=== PATIENT | female | born 1990 | race Caucasian/White ===

== ENCOUNTER 2016-11-26 10:48 | Emergency (ER) | payer MEDICAID ==
[~2016-11-26] VITALS: Ht 160 cm; Wt 56.7 kg
[~2016-11-26 10:48] MED LIST: AMOXICILLIN875 MG PO; AMOXICOT500 MG PO; ATIVAN1 MG PO; CARBATROL300 MG OR; CLONAZEPAM1 M1 OR; CYCLOBENZAPRINE10 MG PO; EFFEXOR XR 75MG75 MG PO; EFFEXOR XR37.5 MG PO; ETODOLAC400 MG PO; FERROUS SULFAT325 M2 PO; FLEXERIL10 MG PO; FOLIC ACID 1MG T1 MG PO; HUMALOG100 U/M1 SC; HUMALOG100 U/ML SC; HUMULIN 70100 UNITS/ SC; HUMULIN N100 UNITS/ SC; HUMULIN R100 UNITS/ SC; IMPLANON68 MG; INSULIN GL100 UNITS/ SC; INSULIN RE100 UNITS/ SC; KEFLEX500 M1 PO; KEPPRA 500 MG500 MG PO; KEPPRA1000 MG OR; KEPPRA1000 MG PO; LANTUS INS100 UNITS/ SC; LEVAQUIN750 MG PO; LEVEMIR FLEX100 U/ML SC; LORTAB 5/500 501 TAB PO; METFORMIN1000 MG PO; NICODERM C21 MG/24 H TD; NOVOLOG MIX 70/10 ML SC; Novolog100 U/ML SC; OXCARBAZEPINE300 M1 PO; PAROXETINE HCL20 MG PO; PHENERGAN 25MG.25 M1 PO; PRENATAL PLUS1 TA1 PO; RELION NOVOL100 U/M1 SQ; RELION NOVOL100 U/ML SC; SERTRALINE 50MG50 MG PO; TRILEPTAL600 MG PO; VALIUM 5MG TABLE5 MG PO; VIMPAT200 MG PO; ZOFRAN 8MG TABLE8 MG PO; ZOFRAN ODT4 MG PO
[2016-11-26 11:33] LABS: URINE BILIRUBIN - DIPSTICK NEGATIVE (NEG); URINE BLOOD NEGATIVE (NEG)
--- NOTE | 2016-11-26 12:27 | Emergency Room Report ---
History of Present Illness Time Seen by 1152 Presenting Problem in Triage Pt arrived:Walked Presenting Problem:REPORTS LOW BACK PAIN. REPORTS TAKING TORADOL, WHICH DIDNT HELP. 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 N Clinical Suspician of Infection? N Mental Status: 1 - Regular (Normal Baseline) Sepsis Risk:Low Sepsis Risk Have you (or family members/close friends) recently traveled outside the [place]? N If Yes, where/when: Have you had exposure to infectious disease within the past month? N TB? Other? Specify: Comment The patient claims of low back pain radiating down her RIGHT leg for about 1-1-1 /2 weeks. She says that she injured her back back in September and came in here by [employer]. She says she did not have x-rays done. It got better afterwards. She says she was put on etodolic and Flexeril. She has been trying those as well as ibuprofen, naproxen, and Toradol and says none of it is helping. She is a diabetic. She has poorly controlled blood sugar. She says her blood sugar was 500 this morning, which is typical for her. She denies urinary symptoms, numbness or weakness. Pain increases with movement particularly bending forward and twisting side to side. ALLERGIES Coded Allergies: buspirone (10/27/16) nitrofurantoin (10/27/16) sulfamethoxazole (From BACTRIM) (10/27/16) topiramate (From TOPAMAX) (10/27/16) trimethoprim (From BACTRIM) (10/27/16) Uncoded Allergies: PLASTIC TAPE (02/18/16) Home Medications Active Scripts Ondansetron (Zofran 4MG Odt) 4 MG PO Q6HP PRN NAUSEA AND VOMITING #10 ODT Prov: 11/06/16 Cyclobenzaprine Hcl (Flexeril) 5 MG PO TIDP PRN pain #30 TAB Prov: 09/07/16 Oxcarbazepine (Trileptal) 900 MG PO BID 30 Days Ref 2 Prov: 08/23/16 Levetiracetam (Keppra 500 Mg Tablet) 2,500 MG PO BID 30 Days Ref 2 Prov: 08/23/16 Lacosamide (Vimpat) 200 MG PO TID 30 Days Ref 2 Prov: 08/23/16 Reported Medications INSULIN REGULAR, HUMAN (Humulin R INSULIN 10ML Vial) 8 UNITS SC AC #10 INSULIN NPH HUMAN ISOPHANE (Humulin N INSULIN 10ML Vial) 25 UNITS SC BID #10 History Medical History General CAD? No Angina: No [place]: No Hypertension? No Hyperlipidemia? No CHF? No DVT? No PE? No COPD? No Asthma? No Anemia? No GERD? No Gastric ulcers? No GI Bleed? No Hernia? No Thyroid Problems? No Hypothyroidism? No CVA? Yes Seizures? Yes Diabetes? Yes Insulin Dependent: Yes Insulin Pump: No Home FSBS? Yes Renal Insuffiency? No End Stage Renal Disease? No UTI? Yes Stones? Yes BPH? No GB Disease: Yes Nephritic Syndrome? No Asplenia? No Hepatitis? No Sickle Cell Disease? No Arthritis? No Migraines? Yes Cataracts? No Glaucoma? No MRSA? No HIV? No TB? No Anxiety? Yes Depression? Yes Cancer? No More? 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 This was on September 07. She did have a lumbar spine x-ray which was negative. I do not feel this needs to be repeated. There has been no new trauma. I suspect that she has a herniated disc and is advised follow-up with her PCP. I will not start steroids given her poorly controlled diabetes. Review of Systems All Other Systems Reviewed and Negative Constitutional denies fever Gastrointestinal denies vomiting Genitourinary denies: dysuria, frequency, hesitancy, hematuria. Musculoskeletal back pain Psychiatric/Neurological denies numbness, denies weakness Physical Exam Vital Signs Vital Signs Date Time Temp Pulse Resp B/P Pulse O2 O2 Flow FiO2 Ox Delivery Rate 11/26 1236 82 16 124/82 99 11/26 1140 88 16 120/81 99 11/26 1138 98.1 99 16 116/79 99 General Appearance normal appearance, WD/WN Eye Exam - bilateral eye normal exam, bilateral eye PERRL, bilateral eye EOMI Ear, Nose, Throat hearing grossly normal, normal ENT inspection Neck normal inspection, non-tender, supple, full range of motion Respiratory Status Yes: trachea midline, chest symmetrical, non tender chest. No: respiratory distress. Lung Sounds bilateral: normal breath sounds, lungs clear. Cardiovascular normal exam, regular rate/rhythm, no peripheral edema, no gallop, no JVD, no murmur, no rub, normal peripheral pulses Peripheral Pulses Pulses normal Yes Gastrointestinal normal bowel sounds, normal exam, non tender, soft, no organomegaly Back normal inspection, no CVA tenderness, no vertebral tenderness Extremities non-tender, normal range of motion, normal inspection Neurologic alert, normal exam, no motor/sensory deficits, oriented x 3 Reflexes Comment 1+ knee jerk and ankle jerk bilaterally symmetric Mental status normal mood/affect Skin intact, normal color, warm/dry Medical Decision Making LABS/Meds/Orders Pt receiving controlled substance in ED? Yes [facility] was queried for this patient? Yes Reference #: [id number] Comment 17 rxs. last rx 10 norco on 11/02/16. 2 rxs for norco in october, tabs on 10/27/16. Results/Orders Laboratory Tests 11/26/16 1120: Urine Color YELLOW, Urine Appearance CLEAR, Urine pH 6.0, Ur Specific [place] 1.010, Urine Protein NEGATIVE, Urine Ketones TRACE H, Urine Blood NEGATIVE, Urine Nitrate NEGATIVE, Urine Bilirubin NEGATIVE, Urine Urobilinogen 0.2, Ur Leukocyte Esterase NEGATIVE, Urine WBC OCC, Ur Squamous Epith Cells 3-5, Urine Bacteria TRACE, Urine Glucose 3+ H Current Medication Orders Sig/Mare Start time Last Medication Dose Route Stop Time Status Admin Hydromorphone HCl 2 MG ONCE ONE 11/26 1245 AC IM 11/26 1246 Ondansetron HCl 4 MG ONCE ONE 11/26 1245 AC IM 11/26 1246 Orders Procedure Date/time Status URINALYSIS/COMPLETE 11/26 1125 Complete URINE 11/26 1125 Complete Departure Departure Disposition DC Home or Self Care(routine) Clinical Impression Primary Impression: Low back pain with sciatica Qualifiers: Chronicity: acute Back pain laterality: midline Sciatica laterality : sciatica of right side Qualified Code: M54.41 - Lumbago with sciatica, right side Condition STABLE Referrals Alvaro PRINCE,Lucius Babcock (PCP) Patient Instructions DI for Back Pain With Sciatica, DI for Lumbar Radiculopathy Additional Instructions Continue only one of the following: etodolic, ibuprofen, naproxen or toradol You may continue Flexeril Additional instructions for BACK PAIN: See your physician as soon as possible for further evaluation. Return immediately if back pain becomes intolerable, or if fever, numbness or weakness of your legs, loss of control of your bowels or bladder. Prescriptions Current Visit Scripts HYDROCODONE/ACETAMINOPHEN ([place] 5-325 Tablet) 1 TAB PO Q6HP PRN pain #20 TAB ED Critical Care Critical Care No at 1247
--- NOTE | 2016-11-26 12:27 | Emergency Room Report ---
History of Present Illness Time Seen by 1152 Presenting Problem in Triage Pt arrived:Walked Presenting Problem:REPORTS LOW BACK PAIN. REPORTS TAKING TORADOL, WHICH DIDNT HELP. 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 N Clinical Suspician of Infection? N Mental Status: 1 - Regular (Normal Baseline) Sepsis Risk:Low Sepsis Risk Have you (or family members/close friends) recently traveled outside the [place]? N If Yes, where/when: Have you had exposure to infectious disease within the past month? N TB? Other? Specify: Comment The patient claims of low back pain radiating down her RIGHT leg for about 1-1-1 /2 weeks. She says that she injured her back back in September and came in here by [employer]. She says she did not have x-rays done. It got better afterwards. She says she was put on etodolic and Flexeril. She has been trying those as well as ibuprofen, naproxen, and Toradol and says none of it is helping. She is a diabetic. She has poorly controlled blood sugar. She says her blood sugar was 500 this morning, which is typical for her. She denies urinary symptoms, numbness or weakness. Pain increases with movement particularly bending forward and twisting side to side. ALLERGIES Coded Allergies: buspirone (10/27/16) nitrofurantoin (10/27/16) sulfamethoxazole (From BACTRIM) (10/27/16) topiramate (From TOPAMAX) (10/27/16) trimethoprim (From BACTRIM) (10/27/16) Uncoded Allergies: PLASTIC TAPE (02/18/16) Home Medications Active Scripts Ondansetron (Zofran 4MG Odt) 4 MG PO Q6HP PRN NAUSEA AND VOMITING #10 ODT Prov: 11/06/16 Cyclobenzaprine Hcl (Flexeril) 5 MG PO TIDP PRN pain #30 TAB Prov: 09/07/16 Oxcarbazepine (Trileptal) 900 MG PO BID 30 Days Ref 2 Prov: 08/23/16 Levetiracetam (Keppra 500 Mg Tablet) 2,500 MG PO BID 30 Days Ref 2 Prov: 08/23/16 Lacosamide (Vimpat) 200 MG PO TID 30 Days Ref 2 Prov: 08/23/16 Reported Medications INSULIN REGULAR, HUMAN (Humulin R INSULIN 10ML Vial) 8 UNITS SC AC #10 INSULIN NPH HUMAN ISOPHANE (Humulin N INSULIN 10ML Vial) 25 UNITS SC BID #10 History Medical History General CAD? No Angina: No PR: No Hypertension? No Hyperlipidemia? No CHF? No DVT? No PE? No COPD? No Asthma? No Anemia? No GERD? No Gastric ulcers? No GI Bleed? No Hernia? No Thyroid Problems? No Hypothyroidism? No CVA? Yes Seizures? Yes Diabetes? Yes Insulin Dependent: Yes Insulin Pump: No Home FSBS? Yes Renal Insuffiency? No End Stage Renal Disease? No UTI? Yes Stones? Yes BPH? No GB Disease: Yes Nephritic Syndrome? No Asplenia? No Hepatitis? No Sickle Cell Disease? No Arthritis? No Migraines? Yes Cataracts? No Glaucoma? No MRSA? No HIV? No TB? No Anxiety? Yes Depression? Yes Cancer? No More? 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 This was on September 07. She did have a lumbar spine x-ray which was negative. I do not feel this needs to be repeated. There has been no new trauma. I suspect that she has a herniated disc and is advised follow-up with her PCP. I will not start steroids given her poorly controlled diabetes. Review of Systems All Other Systems Reviewed and Negative Constitutional denies fever Gastrointestinal denies vomiting Genitourinary denies: dysuria, frequency, hesitancy, hematuria. Musculoskeletal back pain Psychiatric/Neurological denies numbness, denies weakness Physical Exam Vital Signs Vital Signs Date Time Temp Pulse Resp B/P Pulse O2 O2 Flow FiO2 Ox Delivery Rate 11/26 1236 82 16 124/82 99 11/26 1140 88 16 120/81 99 11/26 1138 98.1 99 16 116/79 99 General Appearance normal appearance, WD/WN Eye Exam - bilateral eye normal exam, bilateral eye PERRL, bilateral eye EOMI Ear, Nose, Throat hearing grossly normal, normal ENT inspection Neck normal inspection, non-tender, supple, full range of motion Respiratory Status Yes: trachea midline, chest symmetrical, non tender chest. No: respiratory distress. Lung Sounds bilateral: normal breath sounds, lungs clear. Cardiovascular normal exam, regular rate/rhythm, no peripheral edema, no gallop, no JVD, no murmur, no rub, normal peripheral pulses Peripheral Pulses Pulses normal Yes Gastrointestinal normal bowel sounds, normal exam, non tender, soft, no organomegaly Back normal inspection, no CVA tenderness, no vertebral tenderness Extremities non-tender, normal range of motion, normal inspection Neurologic alert, normal exam, no motor/sensory deficits, oriented x 3 Reflexes Comment 1+ knee jerk and ankle jerk bilaterally symmetric Mental status normal mood/affect Skin intact, normal color, warm/dry Medical Decision Making LABS/Meds/Orders Pt receiving controlled substance in ED? Yes [facility] was queried for this patient? Yes Reference #: [id number] Comment 17 rxs. last rx 10 norco on 11/02/16. 2 rxs for norco in october, tabs on 10/27/16. Results/Orders Laboratory Tests 11/26/16 1120: Urine Color YELLOW, Urine Appearance CLEAR, Urine pH 6.0, Ur Specific [place] 1.010, Urine Protein NEGATIVE, Urine Ketones TRACE H, Urine Blood NEGATIVE, Urine Nitrate NEGATIVE, Urine Bilirubin NEGATIVE, Urine Urobilinogen 0.2, Ur Leukocyte Esterase NEGATIVE, Urine WBC OCC, Ur Squamous Epith Cells 3-5, Urine Bacteria TRACE, Urine Glucose 3+ H Current Medication Orders Sig/Mare Start time Last Medication Dose Route Stop Time Status Admin Hydromorphone HCl 2 MG ONCE ONE 11/26 1245 AC IM 11/26 1246 Ondansetron HCl 4 MG ONCE ONE 11/26 1245 AC IM 11/26 1246 Orders Procedure Date/time Status URINALYSIS/COMPLETE 11/26 1125 Complete URINE 11/26 1125 Complete Departure Departure Disposition DC Home or Self Care(routine) Clinical Impression Primary Impression: Low back pain with sciatica Qualifiers: Chronicity: acute Back pain laterality: midline Sciatica laterality : sciatica of right side Qualified Code: M54.41 - Lumbago with sciatica, right side Condition STABLE Referrals Alvaro PRINCE,Lucius Babcock (PCP) Patient Instructions DI for Back Pain With Sciatica, DI for Lumbar Radiculopathy Additional Instructions Continue only one of the following: etodolic, ibuprofen, naproxen or toradol You may continue Flexeril Additional instructions for BACK PAIN: See your physician as soon as possible for further evaluation. Return immediately if back pain becomes intolerable, or if fever, numbness or weakness of your legs, loss of control of your bowels or bladder. Prescriptions Current Visit Scripts HYDROCODONE/ACETAMINOPHEN ([place] 5-325 Tablet) 1 TAB PO Q6HP PRN pain #20 TAB ED Critical Care Critical Care No at 1242
[2016-11-26] MEDS ORDERED: NORCO 325 MG-51 TAB PO (12:43)
[2016-11-26 12:55] VITALS: BP 124/82
[2016-12-01] MEDS ORDERED: MOTRIN 600MG.600 MG PO (23:29)
[2016-12-21] MEDS ORDERED: OXCARBAZEPINE300 M2 PO (11:58)
[2016-12-21] MEDS ORDERED: NAPROXEN500 M1 PO (11:58)
[2016-12-21] MEDS ORDERED: ZOFRAN ODT4 MG PO (13:08)
[2016-12-21] MEDS ORDERED: CIPRO 500MG TA500 MG PO (13:10)
[2017-02-03] MEDS ORDERED: KEFLEX500 M1 PO (14:23)
[2017-02-23] MEDS ORDERED: AMOXICOT500 MG PO (14:58)
== END 2016-11-26 13:00 | disposition home or self-care (01) ==
LOC: ER 10:48
PROVIDERS: Emergency Medicine
DX: M54.41 Lumbago with sciatica, right side (principal); F41.8 Other specified anxiety disorders; E11.65 Type 2 diabetes mellitus with hyperglycemia; Z79.4 Long term (current) use of insulin
CPT/HCPCS: J2405

== ENCOUNTER 2016-12-23 19:40 | Inpatient (IN) | payer MEDICAID ==
[~2016-12-23] VITALS: Ht 160 cm; Wt 76.4 kg
[~2016-12-23 19:40] MED LIST changes: +CIPRO 500MG TA500 MG PO; +MOTRIN 600MG.600 MG PO; +NAPROXEN500 M1 PO; +NORCO 325 MG-51 TAB PO; +OXCARBAZEPINE300 M2 PO
[2016-12-23 19:42] VITALS: BP 164/86
[2016-12-23 20:06] LABS: URINE BLOOD 1+ (NEG)
[2016-12-23 20:22] LABS: URINE BILIRUBIN - DIPSTICK NEGATIVE (NEG)
[2016-12-23 20:24] LABS: LYMPH # 1.3 K/mm3 (0.7-4.5); LYMPH % 8.5 % (10-50.0)
[2016-12-23 20:27] LABS: HEMOGLOBIN 16.6 g/dL (12.2-16.2)
[2016-12-23 20:29] LABS: ALLEN'S TEST Y; ARTERIAL ABE -22.1 MMOL/L (-2.4-+2.3); ARTERIAL PO2 108.4 MMHG (80-100); ARTERIAL TCO2 7.3 MMOL/L (23-27); OXYGEN R/A
[2016-12-23 20:38] LABS: NEUTROPHILS 84 % (42-76)
--- NOTE | 2016-12-23 20:46 | Emergency Room Report ---
History of Present Illness Time Seen by 2030 Presenting Problem in Triage Pt arrived:Walked Presenting Problem:VOMITING ALL DAY, SEEN IN ER 2 DAYS AGO. 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 N Clinical Suspician of Infection? N Mental Status: 1 - Regular (Normal Baseline) Sepsis Risk:Low Sepsis Risk Have you (or family members/close friends) recently traveled outside the [place]? N If Yes, where/when: Have you had exposure to infectious disease within the past month? N TB? Other? Specify: Source patient, RN notes reviewed, family, old records Exam Limitations no limitations Comment known iddm with vomiting and reported compliance with meds Cardiac Chest Pain Chest pain indicative of cardiac No Timing/Duration this evening Severity moderate ALLERGIES Coded Allergies: buspirone (12/01/16) nitrofurantoin (12/01/16) sulfamethoxazole (From BACTRIM) (12/01/16) topiramate (From TOPAMAX) (12/01/16) trimethoprim (From BACTRIM) (12/01/16) Uncoded Allergies: PLASTIC TAPE (02/18/16) Home Medications Active Scripts Ondansetron (Zofran 4MG Odt) 4 MG PO Q6HP PRN NAUSEA AND VOMITING #6 ODT Prov: 12/21/16 Cyclobenzaprine Hcl (Flexeril) 5 MG PO TIDP PRN pain #30 TAB Prov: 09/07/16 Levetiracetam (Keppra 500 Mg Tablet) 2,500 MG PO BID 30 Days Ref 2 Prov: 08/23/16 Lacosamide (Vimpat) 200 MG PO TID 30 Days Ref 2 Prov: 08/23/16 Reported Medications INSULIN REGULAR, HUMAN (Humulin R INSULIN 10ML Vial) 15 UNITS SC AC #10 VIAL INSULIN NPH HUMAN ISOPHANE (Humulin N INSULIN 10ML Vial) 35 UNITS SC BID #10 VIAL IBUPROFEN (Motrin 600MG) 600 MG PO BIDP PRN INFLAMMATION #120 Oxcarbazepine 1,200 MG PO BID #180 Naproxen 500 MG PO BID #60 History Medical History General CAD? No Angina: No [place]: No Hypertension? No Hyperlipidemia? No CHF? No DVT? No PE? No COPD? No Asthma? No Anemia? No GERD? No Gastric ulcers? No GI Bleed? No Hernia? No Thyroid Problems? No Hypothyroidism? No CVA? Yes Seizures? Yes Diabetes? Yes Insulin Dependent: Yes Insulin Pump: No Home FSBS? Yes Renal Insuffiency? No End Stage Renal Disease? No UTI? Yes Stones? Yes BPH? No GB Disease: Yes Nephritic Syndrome? No Asplenia? No Hepatitis? No Sickle Cell Disease? No Arthritis? No Migraines? Yes Cataracts? No Glaucoma? No MRSA? No HIV? No TB? No Anxiety? Yes Depression? Yes Cancer? No More? 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 Respiratory denies cough, denies shortness of breath, denies wheezing Cardiovascular denies chest pain, denies palpitations, denies syncope Gastrointestinal see HPI, denies abdominal pain, denies diarrhea, nausea, vomiting Genitourinary denies: dysuria, frequency, hesitancy, hematuria. Musculoskeletal denies back pain, denies joint pain, denies joint swelling, denies neck pain Skin denies rash Psychiatric/Neurological see HPI, headache, denies seizure Physical Exam Vital Signs Vital Signs Date Time Temp Pulse Resp B/P Pulse O2 O2 Flow FiO2 Ox Delivery Rate 12/23 2040 120 18 125/68 97 12/23 2038 18 12/23 1941 98.0 151 18 164/86 97 - WBC >12,000 or <4,000 or 10% bands? 2 or more SIRS Criteria Met? B/P:125/68 MAP:112 Creatinine >2.0? UA output<0.5ml/kg/hr for 2 hrs? Platelet count >100,000? Lactate >2.0mmol/1? INR >1.2 or PTT > than 60 sec? Evidence of Organ Dysfunction? Provider documented clinical suspician of infection? N Sepsis Criteria Count: 1 Sepsis Risk: Low Sepsis Risk General Appearance no apparent distress Eye Exam - bilateral eye PERRL, bilateral eye EOMI Ear, Nose, Throat dry mm Neck supple Respiratory Status No: respiratory distress. Lung Sounds bilateral: lungs clear. 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 No Results/Orders Laboratory Tests 12/23/162026: ABG pH 7.16 *L, ABG pCO2 (Temp Corrct 19.5 L, ABG pO2 (Temp Correct 108.4 H, ABG HCO3 6.7 L, ABG Total CO2 7.3 L, ABG O2 Sat (Calculated) 97.9, ABG Base Excess -22.1 L, Shine Test Y, Blood Gas Comments R/R 12/23/161999: Lactic Acid 2.1 H 12/23/161999: Sodium 138, Potassium 4.6, Chloride 101, Carbon Dioxide 9 *L, BUN 23 H, Creatinine 1.6 H, Estimated Creat Clear 65, Estimated GFR (MDRD) 39 L, Glucose 353 H, Calcium 9.2, Total Bilirubin 0.4, AST 12 L, ALT 28, Alkaline Phosphatase 192 H, Creatine Kinase 47, CK-MB (CK-2) Rel Index 1.1, CK and CKMB Interp < 0.5, Troponin I < 0.02, Total Protein 9.4 H, Albumin 4.4, Globulin 5.0 H, Albumin/Globulin Ratio 0.9 L, WBC 15.7 H, RBC 5.64 H, Hgb 16.6 H, Hct 49.7 H, MCV 88.1, RDW 14.4, Plt Count 415, MPV 9.2, Gran % 87.4 H, Gran # 13.7 H, Total Counted 100, Lymphocytes % 8.5 L, Monocytes % 3.7, Eosinophils % 0.1, Basophils % 0.4, Neutrophils 84 H, Band Neutrophils 10 H, Lymphocytes (Manual) 5 L, Lymphocytes # 1.3, Monocytes (Manual) 1 L, Monocytes # 0.6, Eosinophils # 0.0, Basophils # 0.1, RBC/WBC/PLT Morphology NORMAL, Platelet Estimate SLIGHT INCREASE, PUBS MCHC 33.4, MCH 29.4, Acetone Level DETECTED H, Urine Color YELLOW, Urine Appearance CLEAR, Urine pH 5.5, Ur Specific [place] >= 1.030, Urine Protein 2+ H, Urine Ketones 3+ H, Urine Blood 1+ H, Urine Nitrate NEGATIVE, Urine Bilirubin NEGATIVE, Urine Urobilinogen 0.2, Ur Leukocyte Esterase NEGATIVE, Urine RBC 5-10, Ur Squamous Epith Cells 5-10, Amorphous Sediment 2+, Urine Mucus 1+, Urine Glucose NEGATIVE 12/23/161958: Creatine Kinase Cancelled, CK-MB (CK-2) Rel Index Cancelled, CK and CKMB Interp Cancelled, Troponin I Cancelled Current Medication Orders Sig/Mare Start time Last Medication Dose Route Stop Time Status Admin Ketorolac 30 MG ONCE ONE 12/23 2044 DC 12/23 Tromethamine IV 12/23 Ketorolac 0 .STK-MED ONE 12/23 2037 DC Tromethamine .ROUTE Ondansetron HCl 4 MG ONCE ONE 12/23 1999 DC 12/23 IV 12/23 Sodium Chloride 1,000 ML .Q1H1M 12/23 1999 DC 12/23 IV 12/23 Sodium Chloride 10 ML PRN PRN 12/23 1999 AC IV 12/24 1951 Ondansetron HCl 0 .STK-MED ONE 12/23 1956 DC .ROUTE Sodium Chloride 1,000 ML .STK-MED ONE 12/23 1953 DC IV Orders Procedure Date/time Status Decision to admit 12/23 2041 Active ARTERIAL BLOOD GAS REQUEST 12/23 2009 Active DIFFERENTIAL-WBC 12/23 1999 Complete URINE 12/23 1954 Complete Acetone, Serum 12/23 1952 Complete ELECTROCARDIOGRAM REQUEST 12/23 1951 Active CHEST(2 VIEWS-NOT PORTABLE) 12/23 1951 Active CULTURE, BLOOD 12/23 1951 Active URINALYSIS/COMPLETE 12/23 1951 Complete LACTIC ACID 12/23 1951 Complete CBC WITH AUTO DIFF 12/23 1951 Complete CARDIAC ENZYMES 12/23 1951 Complete CHEM 12 PROFILE 12/23 1951 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 ST/Twave chgs XRAY/CT/US XRAY/CT/US XRAY chest XR interpretation by reviewed by me Xray Results normal/NAD Departure Departure Time of Disposition 2137 Disposition Still a Patient Clinical Impression Primary Impression: DKA (diabetic ketoacidoses) Qualifiers: Diabetes mellitus type: type 1 Diabetes mellitus complication detail: without coma Qualified Code: E10.10 - Type 1 diabetes mellitus with ketoacidosis without coma Secondary Impressions: IDDM (insulin dependent diabetes mellitus), Renal insufficiency Condition STABLE Referrals Isma Norwood (Family) ED Critical Care Critical Care Yes Time spent 30-74 min Vital system(s) involved: Metabolic Failure I was present at bedside for Coordinating pt's care, Interpreting EKGs/Strips , Reviewing lab results, Reviewing old records, Discussing pt condition, For re- examinations, Examining radiographs at 3948
[2016-12-23 20:50] LABS: BUN 23 mg/dL (7-18); GFR (ESTIMATED) 39 ML/MIN (59-)
[2016-12-23 22:00] VITALS: BP 133/80
[2016-12-23 22:17] VITALS: BP 130/88
[2016-12-23 22:22] VITALS: BP 130/88
[2016-12-23] MEDS ORDERED: LISINOPRIL2.5 MG PO (22:40)
[2016-12-23] MEDS ORDERED: SIMVASTATIN5 MG PO (22:40)
[2016-12-23 23:00] VITALS: BP 119/80
[2016-12-24] VITALS (22 sets, daily range): BP systolic 96–157; BP diastolic 49–70
--- NOTE | 2016-12-24 05:55 | RADIOLOGY REPORT PS360 ---
CHEST(2 VIEWS-NOT PORTABLE) HISTORY: Cough and weakness TACHYCARDIA ORDERING PHYSICIAN: Lucius John MD PATIENT AGE: 26 years COMPARISON: 10/21/2016 FINDINGS: The cardiomediastinal silhouette and pulmonary vascularity are within normal limits. The lungs are clear without infiltrates, suspicious nodules, or pleural effusions. No acute bony abnormalities. Mediport catheter is present via right IJ approach. The tip is in region of SVC. No change from 10/21/2016 IMPRESSION: Negative chest, no acute finding
--- NOTE | 2016-12-24 08:36 | HISTORY AND PHYSICAL REPORT ---
Demographics: Admit date: 12/23/16 Chief complaint: elevated glucose PRIMARY DIAGNOSIS: DKA Allergies: Coded Allergies: buspirone (12/01/16) nitrofurantoin (12/01/16) sulfamethoxazole (From BACTRIM) (12/01/16) topiramate (From TOPAMAX) (12/01/16) trimethoprim (From BACTRIM) (12/01/16) Uncoded Allergies: PLASTIC TAPE (02/18/16) History of present illness: History of present illness: this iddm with 2 day hx of progressive not feeling well with achey and dec po intake with vomiting - had been seen a couple of days before but had failed op intervention - has had dka in past - pt has sz disorder but no current sz - no fever at this time - pt was found to be dehydrated and in dka in the ed Past medical history: Family HX Family Hx Insignificant Yes Immunization HX DT/Tetanus Unknown Flu Refused Pneumonia Received In Past Other PATIENT HAS NOT HAD FLU SHOT YET TB Test in last year No General CAD? No Angina: No [place]: No Hypertension? No Hyperlipidemia? No CHF? No DVT? No PE? No COPD? No Asthma? No Anemia? No GERD? No Gastric ulcers? No GI Bleed? No Hernia? No Thyroid Problems? No Hypothyroidism? No CVA? Yes Seizures? Yes Diabetes? Yes Insulin Dependent: Yes Insulin Pump: No Home FSBS? Yes Renal Insuffiency? No UTI? Yes Stones? Yes BPH? No GB Disease: Yes Nephritic Syndrome? No Asplenia? No Hepatitis? No Sickle Cell Disease? No Arthritis? No Migraines? Yes Cataracts? No Glaucoma? No MRSA? No HIV? No TB? No Anxiety? Yes Depression? Yes Cancer? No More? Yes Additional hx: BLIND IN RIGHT EYE, L5 BULGING, L3 AND L4 SPINE ARE SHIFTING Past Surgical HX Previous Surgery?Y RT EYE BRAIN SURGERY 2010 APPENDECTOMY [place] Tubal Ligation POWER PORT PLACEMENT NOVASURE ABLATION Current home meds: Active Scripts Ondansetron (Zofran 4MG Odt) 4 MG PO Q6HP PRN NAUSEA AND VOMITING #6 ODT Prov: 12/21/16 Cyclobenzaprine Hcl (Flexeril) 5 MG PO TIDP PRN pain #30 TAB Prov: 09/07/16 Levetiracetam (Keppra 500 Mg Tablet) 2,500 MG PO BID 30 Days Ref 2 Prov: 08/23/16 Lacosamide (Vimpat) 200 MG PO TID 30 Days Ref 2 Prov: 08/23/16 Reported Medications LISINOPRIL (Lisinopril) 2.5 MG PO DAILY Simvastatin 5 MG PO DAILY INSULIN REGULAR, HUMAN (Humulin R INSULIN 10ML Vial) 15 UNITS SC AC #10 VIAL INSULIN NPH HUMAN ISOPHANE (Humulin N INSULIN 10ML Vial) 35 UNITS SC BID #10 VIAL IBUPROFEN (Motrin 600MG) 600 MG PO BIDP PRN INFLAMMATION #120 Oxcarbazepine 1,200 MG PO BID #180 Naproxen 500 MG PO BID #60 Social Hx: Smoking HX Tobacco No Type Cigarettes Packs/day N/A Are you/the child exposed to second-hand smoke: Yes Alcohol Alcohol: No Hx of Drug Use Drug Use? No Patien't marital status is single Patient's support system is good Review of systems: Constitutional see HPI, weakness. No: fever. Eyes No: drainage. Ears, Nose, Mouth, Throat No ear discharge, No epistaxis, No throat pain Respiratory No: cough, shortness of breath, wheezing. Cardiovascular No chest pain, No palpitations, No syncope Gastrointestinal/Abdominal see HPI, No diarrhea, nausea, poor appetite, poor fluid intake, vomiting Genitourinary No: dysuria, frequency, hesitancy, hematuria. Musculoskeletal No: back pain, joint pain, joint swelling, neck pain. Skin No: rash. Neurological Yes: see HPI, headache, tingling, weakness. No: seizure disorder. Psychiatric No: depressed. Exam: Lab data for last 24 hours: Laboratory Tests 12/24/16 0652: POC Glucose 118 H 12/24/16 0605: POC Glucose 95 12/24/16 0600: Sodium 138, Potassium 3.6, Chloride 109 H, Carbon Dioxide 19 L, BUN 16, Creatinine 0.9, Estimated Creat Clear 115, Estimated GFR (MDRD) 76, Glucose 101, Calcium 7.8 L, Acetone Level DETECTED H 12/24/16 0511: POC Glucose 103 12/24/16 0416: POC Glucose 103 12/24/16 0313: POC Glucose 106 12/24/16 0210: POC Glucose 103 12/24/16 0200: Sodium 139, Potassium 3.9, Chloride 109 H, Carbon Dioxide 20 L, BUN 18, Creatinine 1.0, Estimated Creat Clear 104, Estimated GFR (MDRD) 68, Glucose 103, Calcium 7.7 L 12/24/16 0112: POC Glucose 105 12/24/16 0009: POC Glucose 111 H 12/23/16 2304: POC Glucose 179 H 12/23/16 2300: Lactic Acid 0.9 12/23/16 2300: Sodium 138, Potassium 4.1, Chloride 107, Carbon Dioxide 14 L, BUN 19 H, Creatinine 1.2 H, Estimated Creat Clear 86, Estimated GFR (MDRD) 55 L, Glucose 127 H, Calcium 7.6 L 12/23/162214: POC Glucose 246 H 12/23/162118: POC Glucose 340 *H 12/23/162026: ABG pH 7.16 *L, ABG pCO2 (Temp Corrct 19.5 L, ABG pO2 (Temp Correct 108.4 H, ABG HCO3 6.7 L, ABG Total CO2 7.3 L, ABG O2 Sat (Calculated) 97.9, ABG Base Excess -22.1 L, Shine Test Y, Blood Gas Comments R/R 12/23/161999: Phosphorus 5.8 H, Magnesium 1.9 12/23/161999: Lactic Acid 2.1 H 12/23/16 2000: Sodium 138, Potassium 4.6, Chloride 101, Carbon Dioxide 9 *L, BUN 23 H, Creatinine 1.6 H, Estimated Creat Clear 65, Estimated GFR (MDRD) 39 L, Glucose 353 H, Calcium 9.2, Total Bilirubin 0.4, AST 12 L, ALT 28, Alkaline Phosphatase 192 H, Creatine Kinase 47, CK-MB (CK-2) Rel Index 1.1, CK and CKMB Interp < 0.5, Troponin I < 0.02, Total Protein 9.4 H, Albumin 4.4, Globulin 5.0 H, Albumin/Globulin Ratio 0.9 L, WBC 15.7 H, RBC 5.64 H, Hgb 16.6 H, Hct 49.7 H, MCV 88.1, RDW 14.4, Plt Count 415, MPV 9.2, Gran % 87.4 H, Gran # 13.7 H, Total Counted 100, Lymphocytes % 8.5 L, Monocytes % 3.7, Eosinophils % 0.1, Basophils % 0.4, Neutrophils 84 H, Band Neutrophils 10 H, Lymphocytes (Manual) 5 L, Lymphocytes # 1.3, Monocytes (Manual) 1 L, Monocytes # 0.6, Eosinophils # 0.0, Basophils # 0.1, RBC/WBC/PLT Morphology NORMAL, Platelet Estimate SLIGHT INCREASE, PUBS MCHC 33.4, MCH 29.4, Acetone Level DETECTED H, Urine Color YELLOW, Urine Appearance CLEAR, Urine pH 5.5, Ur Specific [place] >= 1.030, Urine Protein 2+ H, Urine Ketones 3+ H, Urine Blood 1+ H, Urine Nitrate NEGATIVE, Urine Bilirubin NEGATIVE, Urine Urobilinogen 0.2, Ur Leukocyte Esterase NEGATIVE, Urine RBC 5-10, Ur Squamous Epith Cells 5-10, Amorphous Sediment 2+, Urine Mucus 1+, Urine Glucose NEGATIVE Microbiology 12/23 1999 BLOOD: Anaerobic Blood Culture - RECD 12/23 1999 BLOOD: Aerobic Blood Culture - RECD 12/23 1999 BLOOD: Anaerobic Blood Culture - RECD 12/23 1999 BLOOD: Aerobic Blood Culture - RECD Admission vital signs: 1ST Vital Signs Result Date Time Pulse Ox 97 12/23 1941 B/P 164/86 12/23 1941 Temp 98.0 12/23 1941 Pulse 151 12/23 1941 Resp 18 12/23 1941 O2 Delivery ROOM AIR 12/23 2200 Exam General appearance: alert, awake Eyes: conjunctiva clear, PERRLA ENT: dry mucous membranes Neck: no JVD Cardiovascular: regular rate & rhythm Respiratory: clear to auscultation, no respiratory distress ABD: soft Genitourinary: no hematuria Extremities: moves all Musculoskeletal: equal muscle strength Skin: dry Neuro: alert, vice president regulatory II-XII nml as tested Plan: Problem List 1. Renal insufficiency 2. IDDM (insulin dependent diabetes mellitus) 3. DKA (diabetic ketoacidoses) Status Acute 4. Seizure disorder Status Chronic Plan: will continue as per dka guidlines - she is better and we discussed compliance at 0836
--- NOTE | 2016-12-24 09:42 | PHARMACY CLINIC NOTE ---
Patient Demographics Patient Demographics Admission date: 12/23/16 Allergies Coded Allergies: buspirone (12/01/16) nitrofurantoin (12/01/16) sulfamethoxazole (From BACTRIM) (12/01/16) topiramate (From TOPAMAX) (12/01/16) trimethoprim (From BACTRIM) (12/01/16) Uncoded Allergies: PLASTIC TAPE (02/18/16) HEIGHT- FT: 5 IN: 3.00 K.403 VTE General Information Labs: Laboratory Tests 12/23 1999 Hematology Hgb (12.2 - 16.2 g/dL) 16.6 H Hct (37.0 - 47.0 %) 49.7 H Plt Count (142 - 424 K/mm3) 415 Disclaimer The following section includes nursing documentation that has been pulled in for pharmacy review. Patient's VTE score: 1 Patient's VTE Risk: VERY LOW RISK Clinical trial participant? No VTE prophylaxis Type of prophylaxis/treatment: SAMIR at 0941
[2016-12-24 12:21] LABS: BUN 12 mg/dL (7-18)
[2016-12-24 12:22] LABS: GFR (ESTIMATED) 76 ML/MIN (59-)
[2016-12-25] VITALS (10 sets, daily range): BP systolic 95–138; BP diastolic 50–81
--- NOTE | 2016-12-25 08:46 | ACUTE CARE PROGRESS NOTE (QUA) ---
Progress Notes Subjective Date 12/25/16 Time 0844 Patient/family reports: feeling better, no complaints Nursing reports: alert, no complaints Objective Findings Laboratory Tests 12/25/16 0629: POC Glucose 311 *H 12/25/16 0510: Sodium 140, Potassium 3.5, Chloride 108 H, Carbon Dioxide 30, BUN 6 L, Creatinine 0.7, Estimated Creat Clear 148, Estimated GFR (MDRD) 102, Glucose 307 H, Calcium 8.2 L, Acetone Level NONE DETECTED 12/24/16 2057: POC Glucose 351 *H 12/24/16 1802: POC Glucose 200 H 12/24/16 1800: Acetone Level NONE DETECTED 12/24/16 1707: POC Glucose 269 H 12/24/16 1607: POC Glucose 292 H 12/24/16 1513: POC Glucose 321 *H 12/24/16 1309: POC Glucose 214 H 12/24/16 1205: Sodium 138, Potassium 3.7, Chloride 108 H, Carbon Dioxide 24, BUN 12, Creatinine 0.9, Estimated Creat Clear 115, Estimated GFR (MDRD) 76, Glucose 263 H, Calcium 8.0 L, Acetone Level SMALL 12/24/16 1158: POC Glucose 250 H 12/24/16 1103: POC Glucose 241 H 12/24/16 1005: POC Glucose 270 H 12/24/16 0900: POC Glucose 275 H 12/24/16 0850: Sodium 137, Potassium 4.0, Chloride 108 H, Carbon Dioxide 21 L, BUN 14, Creatinine 0.9, Estimated Creat Clear 115, Estimated GFR (MDRD) 76, Glucose 245 H, Calcium 7.8 L Vital Signs Date Time Temp Pulse Resp B/P Pulse O2 O2 Flow FiO2 Ox Delivery Rate 12/25 0826 18 12/25 0430 98.5 83 18 96/50 93 12/25 0418 83 18 96/50 93 ROOM AIR 12/25 0200 74 18 95/50 96 ROOM AIR 12/25 0000 98.5 71 18 113/66 100 ROOM AIR 12/24 2339 18 12/24 2114 98.4 74 18 105/70 98 12/24 1803 18 12/24 1800 98.1 83 14 116/65 98 ROOM AIR 12/24 1700 98.7 74 12 101/55 95 ROOM AIR 12/24 1623 98.7 75 18 105/60 97 12/24 1600 98.7 75 18 105/60 97 ROOM AIR 12/24 1500 98.3 82 22 125/65 96 ROOM AIR 12/24 1400 98.3 80 16 104/50 98 ROOM AIR 12/24 1357 16 12/24 1300 98.4 79 16 109/68 100 ROOM AIR 12/24 1200 98.5 78 12 112/67 100 ROOM AIR 12/24 1100 98.5 84 15 157/68 96 ROOM AIR 12/24 1000 98.8 91 25 109/56 97 ROOM AIR 12/24 0912 98.4 95 23 104/51 99 12/24 0900 98.4 95 23 104/51 99 ROOM AIR Current Medications Morphine Sulfate 0 .STK-MED ONE .ROUTE (DC) Insulin Human [rDNA origin] 0 .STK-MED ONE SC (DC) Ondansetron HCl 0 .STK-MED ONE .ROUTE (DC) Morphine Sulfate 0 .STK-MED ONE .ROUTE (DC) Insulin Detemir 0 .STK-MED ONE SC (DC) Insulin Human [rDNA origin] 0 .STK-MED ONE SC (DC) Dextrose/Sodium Chloride 1,000 ML .Q10H IV (DC) Diagnostic Test (Pha) 1 EACH W/MEALS&HS FS Insulin Detemir 15 UNITS 2100 ONE SC (DC) Insulin Human [rDNA origin] SEE ADMIN CRITERIA W/MEALS&HS SC Morphine Sulfate 0 .STK-MED ONE .ROUTE (DC) Morphine Sulfate 0 .STK-MED ONE .ROUTE (DC) Ondansetron HCl 0 .STK-MED ONE .ROUTE (DC) Dextrose/Sodium Chloride 1,000 ML .STK-MED ONE IV (DC) Diphenhydramine HCl 25 MG Q6HP PRN PO Diphenhydramine HCl 0 .STK-MED ONE PO (DC) Dextrose/Sodium Chloride 1,000 ML .Q6H40M IV (DC) Levetiracetam 2,500 MG BID PO Oxcarbazepine 1,200 MG BID PO Ondansetron HCl 4 MG Q6HP PRN IV Sodium Chloride 1,000 ML .Q6H40M IV (DC) Diagnostic Test (Pha) 1 EACH Q1 PS (DC) Insulin Human Regular 100 UNITS .[id number] IV (DC) Sodium Chloride 100 ML Morphine Sulfate 2 MG Q4HP PRN IV Potassium Phosphate 20 MM .Q4H5M PRN IV Sodium Chloride 250 ML Insulin Human Regular 100 UNITS .[id number] IV (DC) Sodium Chloride 100 ML Sodium Chloride 10 ML PRN PRN IV (DC) Last VS-Temp:98.5 B/P:96/50 Pulse:83 Resp:18 SaO2:93 ROOM AIR Last weight lbs:168 oz:7 K.403 Method:Bed Scales Exam General appearance: normal appearance, alert, active, no acute distress Eyes: normal exam ENT: normal exam, mucous membranes moist Neck: normal inspection, full range of motion Cardiovascular: normal exam, regular rate & rhythm Respiratory: normal exam, aerating well, clear to auscultation, chest non- tender, good air movement, no respiratory distress ABD: normal exam, non-distended, normal bowel sounds, no rebound, soft, no tenderness Genitourinary: normal voiding & quantity Extremities: normal exam, moves all, warm Musculoskeletal: normal exam Skin: normal exam, intact, warm Neuro: normal exam, alert, intact, oriented Reviewed: allergies, medications, vital signs, lab results Assessment/Plan Problem List 1. Renal insufficiency 2. IDDM (insulin dependent diabetes mellitus) 3. DKA (diabetic ketoacidoses) Status: Acute Qualifiers: Diabetes mellitus type: type 1 Diabetes mellitus complication detail: without coma Qualified Code: E10.10 - Type 1 diabetes mellitus with ketoacidosis without coma 4. Seizure disorder Status: Chronic Patient condition Stable Plan: initiate discharge plan This inpt stay is expected to cross 2 MNs from start of care Yes Comments: rounded with sasha perez dc after lunch at 0846
--- NOTE | 2016-12-25 12:56 | DISCHARGE SUMMARY STANDARD ---
Demographics Admit date: 12/23/16 Discharge date: 12/25/16 History of present illness History of present illness this iddm with 2 day hx of progressive not feeling well with achey and dec po intake with vomiting - had been seen a couple of days before but had failed op intervention - has had dka in past - pt has sz disorder but no current sz - no fever at this time - pt was found to be dehydrated and in dka in the ed Hospital Course Hospital Course: DKA- iv insulin, montor fs, acetone and iv fluids. pt states she feels better today. Eatting and drinking well. family at bedside. will dc home and follow up in office. Discharge diagnoses Problem List 1. Renal insufficiency 2. IDDM (insulin dependent diabetes mellitus) 3. DKA (diabetic ketoacidoses) Status Acute 4. Seizure disorder Status Chronic Medications Medications: Discharge meds are as noted. Follow up Follow up in office in: 8 DAYS with: Yair Gonzalez Comment: rounded with ana at 2543
[2017-02-03] MEDS ORDERED: KEFLEX500 M1 PO (14:23)
[2017-02-23] MEDS ORDERED: AMOXICOT500 MG PO (14:58)
== END 2016-12-25 16:40 | disposition home or self-care (01) | DRG 639 ==
LOC: ER 19:40 → 2ND 20:43 → ER 20:43 → 2ND 21:55
PROVIDERS: Emergency Medicine; General Practice
DX: E13.10 Other specified diabetes mellitus with ketoacidosis without coma (principal); Z91.11 Patient's noncompliance with dietary regimen
CPT/HCPCS: J2405

== ENCOUNTER 2016-12-30 11:11 | Observation (INO) | payer MEDICAID ==
[~2016-12-30] VITALS: Ht 160 cm; Wt 80.4 kg
[~2016-12-30 11:11] MED LIST changes: +LISINOPRIL2.5 MG PO; +SIMVASTATIN5 MG PO
[2016-12-30 11:14] VITALS: BP 130/84
--- NOTE | 2016-12-30 11:33 | Emergency Room Report ---
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 N Clinical Suspician of Infection? N Mental Status: 1 - Regular (Normal Baseline) Sepsis Risk:Possible Sepsis Risk Have you (or family members/close friends) recently traveled outside the [place]? N If Yes, where/when: Have you had exposure to infectious disease within the past month? N TB? Other? Specify: Patient with vomiting particulate matter, watery stools, dry mouth x two days. Did not take her insulin today. Just discharged from [facility] with dx DKA and UTI, . 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 She has diffuse myalgias; did not get a flu shot this year. No urinary sx. Hx sz d/o but no recent sz activity. Took her medication for sz this morning. Source patient, RN notes reviewed, old records ALLERGIES Coded Allergies: buspirone (12/01/16) nitrofurantoin (12/01/16) sulfamethoxazole (From BACTRIM) (12/01/16) topiramate (From TOPAMAX) (12/01/16) trimethoprim (From BACTRIM) (12/01/16) Uncoded Allergies: PLASTIC TAPE (02/18/16) Home Medications Active Scripts Cyclobenzaprine Hcl (Flexeril) 5 MG PO TIDP PRN pain #30 TAB Prov: 09/07/16 Levetiracetam (Keppra 500 Mg Tablet) 2,500 MG PO BID 30 Days Ref 2 Prov: 08/23/16 Lacosamide (Vimpat) 200 MG PO TID 30 Days Ref 2 Prov: 08/23/16 Reported Medications LISINOPRIL (Lisinopril) 2.5 MG PO DAILY Simvastatin 5 MG PO DAILY INSULIN REGULAR, HUMAN (Humulin R INSULIN 10ML Vial) 15 UNITS SC AC #10 VIAL INSULIN NPH HUMAN ISOPHANE (Humulin N INSULIN 10ML Vial) 35 UNITS SC BID #10 VIAL Oxcarbazepine 1,200 MG PO BID #180 Naproxen 500 MG PO BID #60 History Medical History General CAD? No Angina: No [place]: No Hypertension? No Hyperlipidemia? No CHF? No DVT? No PE? No COPD? No Asthma? No Anemia? No GERD? No Gastric ulcers? No GI Bleed? No Hernia? No Thyroid Problems? No Hypothyroidism? No CVA? Yes Seizures? Yes Diabetes? Yes Insulin Dependent: Yes Insulin Pump: No Home FSBS? Yes Renal Insuffiency? No End Stage Renal Disease? No UTI? Yes Stones? Yes BPH? No GB Disease: Yes Nephritic Syndrome? No Asplenia? No Hepatitis? No Sickle Cell Disease? No Arthritis? No Migraines? Yes Cataracts? No Glaucoma? No MRSA? No HIV? No TB? No Anxiety? Yes Depression? Yes Cancer? No More? Yes Additional hx: BLIND IN RIGHT EYE, L5 BULGING, L3 AND L4 SPINE ARE SHIFTING Immunization Hx DT/Tetanus Unknown Flu Refused Pneumonia Refuses Surgical Hx Previous Surgery?Y RT EYE BRAIN SURGERY 2010 APPENDECTOMY Gall[place]add Tubal Ligation POWER PORT PLACEMENT NOVASURE ABLATION RN COMMUNITY Hx LMP 3 Months Ago Family History Family Hx Diabetes Yes CAD Yes Hypertension Yes Hyperlipidemia Yes Cancer Yes TB No Social History Smoking Hx Smoker: Never Smoker Tobacco: No Packs/day N/A Alcohol Alcohol: No Review of Systems All Other Systems Reviewed and Negative Constitutional malaise Gastrointestinal see HPI Musculoskeletal see HPI Psychiatric/Neurological denies no symptoms reported Physical Exam Vital Signs Vital Signs Date Time Temp Pulse Resp B/P Pulse O2 O2 Flow FiO2 Ox Delivery Rate 12/30 1211 111 16 154/86 98 12/30 1114 97.9 117 20 130/84 98 General Appearance normal appearance, WD/WN, no apparent distress Eye Exam - bilateral eye normal exam, bilateral eye PERRL Ear, Nose, Throat hearing grossly normal (OP dry; lips dry/cracked) Neck normal inspection, non-tender, supple, full range of motion Respiratory Status Yes: trachea midline, chest symmetrical, non tender chest. No: respiratory distress, tender on palpation, use of accessory muscles, pain on inspiration, pain on expiration, productive cough, non productive cough. Lung Sounds bilateral: normal breath sounds, lungs clear. Cardiovascular normal exam, no peripheral edema, no gallop, no JVD, no murmur, no rub, normal peripheral pulses, tachycardia Gastrointestinal normal bowel sounds, normal exam, non tender, soft, no organomegaly, no guarding, no rebound Extremities normal range of motion, normal inspection Neurologic alert, normal exam, no motor/sensory deficits, oriented x 3 Glascow Coma Scale Glascow Coma Scale Response Value EYE response: 4 Spontaneously 4 MOTOR response: 6 OBEYS 6 VERBAL response: 5 Oriented & Converses 5 Total 15 Skin intact, normal color, warm/dry Lymphatic no adenopathy Medical Decision Making LABS/Meds/Orders Pt receiving controlled substance in ED? No Results/Orders Laboratory Tests 12/30/16 1228: VBG pH 7.25 L, VBG Total CO2 14.9 L, VBG O2 Sat (Calc) 91.5 H, VBG Base Excess -13.3 L, Mixed VBG pCO2 32.4 L, Mixed VBG pO2 68.0 H, Mixed VBG HCO3 13.9 L 12/30/16 1145: Lactic Acid 1.1 12/30/16 1145: Sodium 132 L, Potassium 4.5, Chloride 95 L, Carbon Dioxide 14 L, BUN 16, Creatinine 0.8, Estimated Creat Clear 129, Estimated GFR (MDRD) 87, Glucose 462 H, Calcium 9.3, Total Bilirubin 0.4, AST Pending, ALT 18, Alkaline Phosphatase 151 H, Total Protein 8.1, Albumin 3.9, Globulin 4.2 H, Albumin/Globulin Ratio 0.9 L, Lipase 194, WBC 10.6, RBC 4.95, Hgb 13.4, Hct 43.1, MCV 87.1, RDW 14.7, Plt Count 302, MPV 9.5, Gran % 76.0, Gran # 8.1 H, Lymphocytes % 20.0, Monocytes % 2.4, Eosinophils % 1.1, Basophils % 0.5, Lymphocytes # 2.1, Monocytes # 0.3, Eosinophils # 0.1, Basophils # 0.1, PUBS MCHC 30.9 L, MCH 26.9 L, Influenza Type A Ag NOT DETECTED, Influenza Type B Ag NOT DETECTED, Acetone Level SMALL, Urine Color YELLOW, Urine Appearance CLEAR, Urine pH 5.5, Ur Specific [place] >= 1.030, Urine Protein NEGATIVE, Urine Ketones 3+ H, Urine Blood NEGATIVE, Urine Nitrate NEGATIVE, Urine Bilirubin NEGATIVE, Urine Urobilinogen 0.2, Ur Leukocyte Esterase NEGATIVE, Urine RBC NONE, Urine WBC OCC, Ur Squamous Epith Cells 3-5, Urine Bacteria TRACE, Fine Granular Casts OCC, Urine Glucose 2+ H 12/30/16 1132: POC Glucose 423 *H Current Medication Orders Sig/Mare Start time Last Medication Dose Route Stop Time Status Admin Acetaminophen 650 MG ONCE ONE 12/30 1245 AC PO 12/30 1246 Insulin Human Regular 0 .STK-MED ONE 12/30 1218 DC .ROUTE Insulin Human Regular 10 UNITS ONCE ONE 12/30 1215 DC / SC 12/30 1216 1219 Ondansetron HCl 0 .STK-MED ONE 12/30 1148 DC .ROUTE Sodium Chloride 1,000 ML .STK-MED ONE 12/30 1148 DC IV Ondansetron HCl 4 MG ONCE ONE 12/30 1130 DC 12/30 IV 12/30 1131 1150 Sodium Chloride 1,000 ML .Q1H1M 12/30 1130 DC 12/30 IV 12/30 1230 1150 Sodium Chloride 10 ML PRN PRN 12/30 1130 AC IV 12/31 1123 Orders Procedure Date/time Status VENOUS BLOOD GAS 12/30 1222 Active CULTURE, BLOOD 12/30 1135 Active LACTIC ACID 12/30 1135 Complete IV SALINE LOCK 12/30 1133 Active FINGERSTICK BLOOD SUGAR 12/30 1132 Complete CULTURE, BLOOD 12/30 1129 Active URINALYSIS/COMPLETE 12/30 1129 Complete LIPASE 12/30 1129 Active INFLUENZA A&B ANTIGENS 12/30 1129 Complete FSBS REQUEST BY CARE AREA 12/30 1129 Active CBC WITH AUTO DIFF 12/30 1129 Complete CHEM 12 PROFILE 12/30 1129 Active Acetone, Serum 12/30 1129 Active Consult MD Physician Consult Consult/PCP Dr. Gonzalez: admit to Dr. John. Agrees no gtts as ketones small. Time Called 1240 Reason Admission Departure Departure Time of Disposition 1245 Disposition Still a Patient Clinical Impression Primary Impression: DKA (diabetic ketoacidoses) Qualifiers: Diabetes mellitus type: type 1 Diabetes mellitus complication detail: without coma Qualified Code: E10.10 - Type 1 diabetes mellitus with ketoacidosis without coma Condition STABLE Referrals Isma Norwood (Family) ED Critical Care Critical Care Yes Time spent < 30 min Vital system(s) involved: Circulatory Failure (DKA) I was present at bedside for Coordinating pt's care, During my initial exam, Reviewing lab results, Reviewing old records, Discussing pt condition, For re- examinations at 1241
[2016-12-30 12:01] LABS: URINE BILIRUBIN - DIPSTICK NEGATIVE (NEG); URINE BLOOD NEGATIVE (NEG)
[2016-12-30 12:06] LABS: LYMPH # 2.1 K/mm3 (0.7-4.5)
[2016-12-30 12:12] LABS: HEMOGLOBIN 13.4 g/dL (12.2-16.2)
[2016-12-30 12:15] LABS: BUN 16 mg/dL (7-18)
[2016-12-30 12:20] LABS: GFR (ESTIMATED) 87 ML/MIN (59-)
[2016-12-30 12:31] LABS: VENOUS TCO2 14.9 MMOL/L (23-27)
[2016-12-30 12:32] LABS: VENOUS ABE -13.3 MMOL/L (-2.4-2.3); VENOUS O2 SAT 91.5 % (75-80)
[2016-12-30 13:54] VITALS: BP 128/79
[2016-12-30 14:16] VITALS: BP 139/89
[2016-12-30] MEDS ORDERED: FLEXERIL10 MG PO (14:16)
[2016-12-30] MEDS ORDERED: IBUPROFEN800 MG PO (14:19)
[2016-12-30 15:56] VITALS: BP 130/67
--- NOTE | 2016-12-30 19:10 | HISTORY AND PHYSICAL REPORT ---
Demographics: Admit date: 12/30/16 Chief complaint: Vomiting/diarrhea PRIMARY DIAGNOSIS: DKA Allergies: Coded Allergies: buspirone (12/01/16) nitrofurantoin (12/01/16) sulfamethoxazole (From BACTRIM) (12/01/16) topiramate (From TOPAMAX) (12/01/16) trimethoprim (From BACTRIM) (12/01/16) Uncoded Allergies: PLASTIC TAPE (02/18/16) History of present illness: History of present illness: 26-year-old white female with diabetes, very poorly controlled secondary to medication and dietary noncompliance. Is in a very poor social situation and has had multiple primary care physicians over the past year. She reports that she's had increasing nausea and vomiting since discharge from the hospital 3 days ago, has had watery stools. Came to the emergency department today, found to be acidotic with a very small amount of ketones. Was admitted to hospital for IV fluids, sliding scale insulin and observation. Since she's been admitted she's had no vomiting or diarrhea noted. Her main complaint has been back and leg pain from "my 2 bulging disks in my hips that are not the same level." She apparently been diagnosed with these problems by local chiropractor. Dr. Isma Norwood has been providing naproxen prescriptions for her for pain from this issue. She does not think they're bothering her stomach. Past medical history: Family HX Diabetes Yes CAD Yes Hypertension Yes Hyperlipidemia Yes Cancer Yes TB No Immunization HX DT/Tetanus Unknown Flu Refused Pneumonia Refuses TB Test in last year No General CAD? No Angina: No FL: No Hypertension? Yes Hyperlipidemia? No CHF? No DVT? No PE? No COPD? No Asthma? No Anemia? No GERD? No Gastric ulcers? No GI Bleed? No Hernia? No Thyroid Problems? Yes Hypothyroidism? No CVA? Yes Seizures? Yes Diabetes? Yes Insulin Dependent: Yes Insulin Pump: No Home FSBS? Yes Renal Insuffiency? No UTI? Yes Stones? Yes BPH? No GB Disease: Yes Nephritic Syndrome? No Asplenia? No Hepatitis? No Sickle Cell Disease? No Arthritis? No Migraines? Yes Cataracts? No Glaucoma? No MRSA? Yes HIV? No TB? No Anxiety? Yes Depression? Yes Cancer? No More? Yes Additional hx: BLIND IN RIGHT EYE, L5 BULGING, L3 AND L4 SPINE ARE SHIFTING Past Surgical HX Previous Surgery?Y RT EYE BRAIN SURGERY 2011 APPENDECTOMY [place] Tubal Ligation POWER PORT PLACEMENT NOVASURE ABLATION Current home meds: Active Scripts Levetiracetam (Keppra 500 Mg Tablet) 2,500 MG PO BID 30 Days Ref 2 Prov: 08/23/16 Lacosamide (Vimpat) 200 MG PO TID 30 Days Ref 2 Prov: 08/23/16 Reported Medications LISINOPRIL (Lisinopril) 2.5 MG PO DAILY Simvastatin 5 MG PO DAILY Cyclobenzaprine Hcl (Flexeril) 5 MG PO Q6HP PRN MUSCLE RELAXER Ibuprofen (Ibuprofen 800MG) 800 MG PO Q6HP PRN MILD PAIN INSULIN REGULAR, HUMAN (Humulin R INSULIN 10ML Vial) 15 UNITS SC AC #10 VIAL INSULIN NPH HUMAN ISOPHANE (Humulin N INSULIN 10ML Vial) 35 UNITS SC BID #10 VIAL Oxcarbazepine 1,200 MG PO BID #180 Naproxen 500 MG PO BID #60 Social Hx: Smoking HX Tobacco No Type Cigarettes Packs/day N/A Alcohol Alcohol: No Hx of Drug Use Drug Use? No Patien't marital status is single Patient's support system is good Review of systems: Constitutional malaise, weakness. Respiratory No: no symptoms reported. Cardiovascular No no symptoms reported Gastrointestinal/Abdominal see HPI, No blood streaked bowels, No constipated, No difficulty swallowing, nausea, poor appetite, poor fluid intake, No rectal bleeding, vomiting Genitourinary No: no symptoms reported. Musculoskeletal see HPI, back pain. No: no symptoms reported. Neurological No: no symptoms reported. Exam: Lab data for last 24 hours: Laboratory Tests 12/30/16 1654: POC Glucose 175 H 12/30/16 1228: VBG pH 7.25 L, VBG Total CO2 14.9 L, VBG O2 Sat (Calc) 91.5 H, VBG Base Excess -13.3 L, Mixed VBG pCO2 32.4 L, Mixed VBG pO2 68.0 H, Mixed VBG HCO3 13.9 L 12/30/16 1145: Lactic Acid 1.1 12/30/16 1145: Sodium 132 L, Potassium 4.5, Chloride 95 L, Carbon Dioxide 14 L, BUN 16, Creatinine 0.8, Estimated Creat Clear 129, Estimated GFR (MDRD) 87, Glucose 462 H, Calcium 9.3, Total Bilirubin 0.4, AST 9 L, ALT 18, Alkaline Phosphatase 151 H, Total Protein 8.1, Albumin 3.9, Globulin 4.2 H, Albumin/Globulin Ratio 0.9 L, Lipase 194, WBC 10.6, RBC 4.95, Hgb 13.4, Hct 43.1, MCV 87.1, RDW 14.7, Plt Count 302, MPV 9.5, Gran % 76.0, Gran # 8.1 H, Lymphocytes % 20.0, Monocytes % 2.4, Eosinophils % 1.1, Basophils % 0.5, Lymphocytes # 2.1, Monocytes # 0.3, Eosinophils # 0.1, Basophils # 0.1, PUBS MCHC 30.9 L, MCH 26.9 L, Influenza Type A Ag NOT DETECTED, Influenza Type B Ag NOT DETECTED, Acetone Level SMALL, Urine Color YELLOW, Urine Appearance CLEAR, Urine pH 5.5, Ur Specific [place] >= 1.030, Urine Protein NEGATIVE, Urine Ketones 3+ H, Urine Blood NEGATIVE, Urine Nitrate NEGATIVE, Urine Bilirubin NEGATIVE, Urine Urobilinogen 0.2, Ur Leukocyte Esterase NEGATIVE, Urine RBC NONE, Urine WBC OCC, Ur Squamous Epith Cells 3-5, Urine Bacteria TRACE, Fine Granular Casts OCC, Urine Glucose 2+ H 12/30/16 1132: POC Glucose 423 *H Microbiology 12/30 114 BLOOD: Anaerobic Blood Culture - RECD 12/30 114 BLOOD: Aerobic Blood Culture - RECD 12/30 113 BLOOD: Anaerobic Blood Culture - CAN Cancelled: DUPLICATE 12/30 113 BLOOD: Aerobic Blood Culture - CAN Cancelled: DUPLICATE 12/30 113 BLOOD: Anaerobic Blood Culture - CAN Cancelled: ONLY 1 SET REQUIRED 12/30 113 BLOOD: Aerobic Blood Culture - CAN Cancelled: ONLY 1 SET REQUIRED Admission vital signs: 1ST Vital Signs Result Date Time Pulse Ox 98 12/30 1114 B/P 130/84 12/30 1114 Temp 97.9 12/30 1114 Pulse 117 12/30 1114 Resp 20 12/30 1114 O2 Delivery ROOM AIR 12/30 1354 Exam General appearance: normal appearance, alert, awake Eyes: normal exam, anicteric ENT: normal exam, mucous membranes moist Neck: normal inspection, non-tender, no carotid bruit, no JVD Cardiovascular: normal exam Respiratory: normal exam, clear to auscultation ABD: normal exam, non-distended, normal bowel sounds Extremities: normal exam Musculoskeletal: normal exam Skin: normal exam, intact, normal color, tattoos on forearms with a butterfly motif, stylized heart on the RIGHT neck Neuro: normal exam, alert, no deficit Plan: Problem List 1. Hyperglycemia due to type 1 diabetes mellitus Status Acute 2. DKA (diabetic ketoacidoses) Status Acute Plan: Very mild ketosis. Patient currently asymptomatic from a gastrointestinal perspective. Tolerated supper. Insulin with sliding scale has improved her glucose nicely. Continue fluids. She is on naproxen for her pain, hopefully discharge tomorrow. at 1903
[2016-12-30 19:26] VITALS: BP 116/66
[2016-12-31 03:34] VITALS: BP 99/58
[2016-12-31 06:56] LABS: LYMPH # 1.7 K/mm3 (0.7-4.5); LYMPH % 33.4 % (10-50.0)
[2016-12-31 06:58] LABS: HEMOGLOBIN 10.9 g/dL (12.2-16.2)
[2016-12-31 07:27] VITALS: BP 99/56
--- NOTE | 2016-12-31 07:56 | DISCHARGE SUMMARY STANDARD ---
Demographics Admit date: 12/30/16 Discharge date: 12/31/16 History of present illness History of present illness 26-year-old white female with diabetes, very poorly controlled secondary to medication and dietary noncompliance. Is in a very poor social situation and has had multiple primary care physicians over the past year. She reports that she's had increasing nausea and vomiting since discharge from the hospital 3 days ago, has had watery stools. Came to the emergency department today, found to be acidotic with a very small amount of ketones. Was admitted to hospital for IV fluids, sliding scale insulin and observation. Since she's been admitted she's had no vomiting or diarrhea noted. Her main complaint has been back and leg pain from "my 2 bulging disks in my hips that are not the same level." She apparently been diagnosed with these problems by local chiropractor. Dr. Isma Norwood has been providing naproxen prescriptions for her for pain from this issue. She does not think they're bothering her stomach. Hospital Course Hospital Course: She did well overnight. Had no further vomiting, limited episodes of watery stool but no fever, no blood and no mucus. This morning her exam is vastly improved, with clear lungs, abdomen soft and nontender, regular heart rate without tachycardia. She is alert and oriented 3. The nurses report that she is a voracious eater and has been eating snacks and all of her offered food throughout the evening and night. She has no clubbing or cyanosis. Lab review shows her acidosis has resolved, glucose levels are high but certainly not in the range on admission. Renal function is unremarkable. Plan will be to discharge her home. I like her to see her current primary care provider, Dr. Norwood in 3 days, I like labs in 48 hours. I've advised over-the- counter Pepto-Bismol for her diarrhea and resuming her regular insulin regimen at home. Discharge diagnoses Problem List 1. Hyperglycemia due to type 1 diabetes mellitus Status Acute 2. DKA (diabetic ketoacidoses) Status Acute Medications Medications: Discharge meds are as noted. Follow up Follow up in office in: 3 DAYS with: Isma Norwood at [phone]
--- NOTE | 2016-12-31 11:00 | PHARMACY CLINIC NOTE ---
Patient Demographics Patient Demographics Admission date: 12/30/16 Date: 12/31/16 Time: 1059 Allergies Coded Allergies: buspirone (12/01/16) nitrofurantoin (12/01/16) sulfamethoxazole (From BACTRIM) (12/01/16) topiramate (From TOPAMAX) (12/01/16) trimethoprim (From BACTRIM) (12/01/16) Uncoded Allergies: PLASTIC TAPE (02/18/16) HEIGHT- FT: 5 IN: 3.00 K.[id number] VTE General Information Labs: Laboratory Tests 12/31 12/30 0610 1145 Hematology Hgb (12.2 - 16.2 g/dL) 10.9 L 13.4 Hct (37.0 - 47.0 %) 34.4 L 43.1 Plt Count (142 - 424 K/mm3) 219 302 Disclaimer The following section includes nursing documentation that has been pulled in for pharmacy review. Patient's VTE score: 2 Patient's VTE Risk: VERY LOW RISK Clinical trial participant? No VTE prophylaxis [id number] VTE prophylaxis ordered? Yes Type of prophylaxis/treatment: SAMIR at 3743
[2016-12-31 11:36] VITALS: BP 99/56
[2017-02-03] MEDS ORDERED: KEFLEX500 M1 PO (14:23)
[2017-02-23] MEDS ORDERED: AMOXICOT500 MG PO (14:58)
== END 2016-12-31 11:33 | disposition home or self-care (01) ==
LOC: ER 11:11 → 2ND 12:57
PROVIDERS: Emergency Medicine
DX: E13.10 Other specified diabetes mellitus with ketoacidosis without coma (principal); Z91.11 Patient's noncompliance with dietary regimen
CPT/HCPCS: G0378; J1642; J2405; Q2038

== ENCOUNTER → 2017-03-27 | Outpatient (CLI) | payer MEDICAID ==
[~2017-03-27] MED LIST changes: +BACLOFEN 10MG T10 MG PO; +IBUPROFEN800 MG PO; +NEURONTIN 300M300 MG PO; +SIMVASTATIN10 MG PO
[2017-03-29 06:37] LABS: HBsAg Screen Negative (Negative); HSV 2 IgG, Type Spec <0.91 index (0.00-0.90); Hep A Ab, IgM Negative (Negative); Hep B Core Ab, IgM Negative (Negative); Hep C Virus Ab <0.1 (0.0-0.9)
[2017-03-29 08:45] LABS: HIV Screen 4th Generation wRfx Non Reactive (Non Reactive); Rapid Plasma Reagin, Quant Non Reactive (NonRea<1:1)
[2017-03-29 16:36] LABS: Neisseria gonorrhoeae, NAA Negative (Negative)
== END ==
LOC: LAB 14:02
PROVIDERS: Nurse Practitioner Obstetrics & Gynecology
DX: Z72.51 High risk heterosexual behavior (principal)
CPT/HCPCS: G0432

== ENCOUNTER 2017-08-04 22:01 | Emergency (ER) | payer MEDICAID ==
[~2017-08-04] VITALS: Ht 160 cm; Wt 81.6 kg
[~2017-08-04 22:01] MED LIST changes: +BACLOFEN10 MG PO; +VICODIN1 TAB PO
--- NOTE | 2017-08-04 22:22 | Emergency Room Report ---
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 N Clinical Suspician of Infection? Y Mental Status: 3 - Acutely Altered Sepsis Risk:Severe Sepsis Risk Have you (or family members/close friends) recently traveled outside the [place]? N If Yes, where/when: Have you had exposure to infectious disease within the past month? N TB? Other? Specify: Source RN notes reviewed, EMS, old records Exam Limitations clinical condition Comment pt with known iddm with possible sz and she was brought by ems with inc rr and elevated glu - pt with recent admit at another hospital for same issues - family states has been going on all day - pt with known sz disorder Cardiac Chest Pain Chest pain indicative of cardiac No Timing/Duration this evening Severity severe ALLERGIES Coded Allergies: buspirone (03/22/17) nitrofurantoin (03/22/17) sulfamethoxazole (From BACTRIM) (03/22/17) topiramate (From TOPAMAX) (03/22/17) trimethoprim (From BACTRIM) (03/22/17) adhesive tape (Intermediate, SKIN IRRITATION 03/23/17) Home Medications Active Scripts Lacosamide (Vimpat) 200 MG PO TID 30 Days Ref 2 Prov: 08/23/16 Gabapentin (Neurontin 300MG) 300 MG PO TID 10 Days Prov: 07/03/17 Reported Medications INSULIN REGULAR, HUMAN (Humulin R INSULIN 10ML Vial) 20 UNITS SC AC #10 VIAL Oxcarbazepine 1,200 MG PO BID #180 TAB Levetiracetam (Keppra) 2,500 MG PO BID Baclofen 10 MG PO TID PRN MUSCLE SPASMS #90 Simvastatin 5 MG PO DAILY LISINOPRIL (Lisinopril) 2.5 MG PO DAILY HYDROCODONE/ACETAMINOPHEN (Vicodin 5-300 MG Tablet) 1 TAB PO Q 6 HOURS PRN PAIN History Medical History General CAD? No Angina: No MD: No Hypertension? Yes Hyperlipidemia? No CHF? No DVT? No PE? No COPD? No Asthma? No Anemia? No GERD? No Gastric ulcers? No GI Bleed? No Hernia? No Thyroid Problems? Yes Hypothyroidism? No CVA? Yes Seizures? Yes Diabetes? Yes Insulin Dependent: Yes Insulin Pump: No Home FSBS? Yes Renal Insuffiency? No End Stage Renal Disease? No UTI? Yes Stones? Yes BPH? No GB Disease: Yes Nephritic Syndrome? No Asplenia? No Hepatitis? No Sickle Cell Disease? No Arthritis? No Migraines? Yes Cataracts? No Glaucoma? No MRSA? Yes HIV? No TB? No Anxiety? Yes Depression? Yes Cancer? No More? Yes Additional hx: BLIND IN RIGHT EYE, L5 BULGING, L3 AND L4 SPINE ARE SHIFTING Immunization Hx DT/Tetanus Unknown Flu 2015-FSN Pneumonia Received In Past Surgical Hx Previous Surgery?Y RT EYE BRAIN SURGERY 2011 APPENDECTOMY [place] Tubal Ligation POWER PORT PLACEMENT NOVASURE ABLATION BACK SURGERY 05/07/17 [employer] Hx LMP On Depo Med-LMP Unknown Family History Family Hx Diabetes Yes CAD Yes Hypertension Yes Hyperlipidemia Yes Cancer Yes TB No Social History Smoking Hx Smoker: Unknown if Ever Smoked Tobacco: No Packs/day N/A Alcohol Alcohol: No Drugs none Review of Systems All Other Systems Reviewed and Negative Constitutional denies fever Eyes denies drainage ENT denies: ear discharge, mouth pain. Respiratory see HPI, shortness of breath Cardiovascular denies chest pain, denies palpitations, denies syncope Gastrointestinal see HPI, denies abdominal pain, denies diarrhea, nausea, vomiting Genitourinary denies: dysuria, frequency, hesitancy, hematuria. Musculoskeletal denies back pain, denies joint pain, denies joint swelling, denies neck pain Skin denies rash Psychiatric/Neurological see HPI, seizure Comment obtained from family Physical Exam Vital Signs Vital Signs Date Time Temp Pulse Resp B/P Pulse O2 O2 Flow FiO2 Ox Delivery Rate 08/04 2347 134 38 94/46 100 08/04 2326 94.3 130 38 94/51 100 08/04 2311 127 38 109/51 100 08/04 2306 138 38 100 08/04 2300 129 38 102/44 99 08/04 2245 129 34 100 08/04 2227 94.9 141 36 142/95 100 08/04 2203 140 36 111/36 100 - WBC >12,000 or <4,000 or 10% bands? 2 or more SIRS Criteria Met? B/P:94/51 MAP:61 Creatinine >2.0? UA output<0.5ml/kg/hr for 2 hrs? Platelet count >100,000? Lactate >2.0mmol/1? INR >1.2 or PTT > than 60 sec? Evidence of Organ Dysfunction? Provider documented clinical suspician of infection? Y Sepsis Criteria Count: 4 Sepsis Risk: Severe Sepsis Risk General Appearance moderate distress, lethargic Eye Exam Comment chronic changes rt eye Ear, Nose, Throat dry mm Neck supple Respiratory Status No: respiratory distress. Lung Sounds bilateral: decreased breath sounds. Cardiovascular regular rate/rhythm, no JVD, no rub, systolic murmur Peripheral Pulses Pulses normal Yes Gastrointestinal soft Extremities no calf tenderness, pedal edema Strength 4 Upper Ext (L), 4 Upper Ext (R), 4 Lower Ext (L), 4 Lower Ext (R) Neurologic obtunded with no posturing or focal changes Glascow Coma Scale Glascow Coma Scale Response Value EYE response: 4 Spontaneously 4 MOTOR response: 6 OBEYS 6 VERBAL response: 4 Disoriented & Converses 4 Total 14 Reflexes Reflexes normal No Mental status altered mental status Skin intact Medical Decision Making LABS/Meds/Orders Pt receiving controlled substance in ED? No Results/Orders Laboratory Tests 08/04/17 2300: Opiates Screen NEGATIVE, Urine Methadone Screen NEGATIVE, Barbiturates NEGATIVE, Phencyclidine Screen NEGATIVE, Amphetamines Screen NEGATIVE, Benzodiazepines Screen NEGATIVE, Cocaine Screen NEGATIVE, Marijuana (THC) Screen NEGATIVE, Urine Color YELLOW, Urine Appearance SL CLOUDY, Urine pH 5.5, Ur Specific [place] 1.025, Urine Protein 1+ H, Urine Ketones 3+ H, Urine Blood 1+ H, Urine Nitrate NEGATIVE, Urine Bilirubin NEGATIVE, Urine Urobilinogen 0.2, Ur Leukocyte Esterase NEGATIVE, Ur Squamous Epith Cells 5-10, Amorphous Sediment 4+, Hyaline Casts FEW, Coarse Granular Casts FEW, Urine Glucose 3+ H 08/04/17 2248: VBG pH 6.77 L, VBG Total CO2 1.4 L, VBG O2 Sat (Calc) 98 H, VBG Base Excess - 33.9 L, Mixed VBG pCO2 8.4 L, Mixed VBG pO2 194.4 H, Mixed VBG HCO3 1.2 L 08/04/17 2245: Lactic Acid 3.2 H 08/04/172244: Sodium 130 L, Potassium 6.7 *H, Chloride 92 L, Carbon Dioxide < 5 *L, BUN 23 H, Creatinine 1.8 H, Estimated Creat Clear 61, Estimated GFR (MDRD) 34 L, Glucose 878 *H, Calcium 8.5, Total Bilirubin 0.5, AST 28, ALT 20, Alkaline Phosphatase 233 H, Total Protein 8.7 H, Albumin 4.0, Globulin 4.7 H, Albumin/ Globulin Ratio 0.9 L, WBC 31.1 *H, RBC 4.50, Hgb 12.1 L, Hct 44.2, MCV 98.3 H , RDW 14.6, Plt Count 309, MPV 10.2, Gran % 87.6 H, Gran # 27.3 H, Total Counted 100, Lymphocytes % 7.0 L, Monocytes % 4.8, Eosinophils % 0.2, Basophils % 0.4, Neutrophils 68, Band Neutrophils 20 H, Lymphocytes (Manual) 10, Lymphocytes # 2.2, Monocytes (Manual) 2, Monocytes # 1.5 H, Eosinophils # 0.1, Basophils # 0.1, Platelet Estimate NORMAL, Hypochromasia 3+, Poikilocytosis SL., Macrocytosis 1+, Rouleaux SL., PUBS MCHC 27.4 L, MCH 26.9 L, Acetone Level DETECTED H Current Medication Orders Sig/Mare Start time Last Medication Dose Route Stop Time Status Admin Sodium Chloride 1,000 ML .Q1H1M 08/04 2345 AC 08/04 IV 08/05 0045 2348 Sodium Chloride 10 ML PRN PRN 08/04 2345 AC IV 08/05 2343 Insulin Human Regular 0 .STK-MED ONE 08/04 233 DC .ROUTE Sodium Chloride 100 ML .STK-MED ONE 08/04 2331 DC IV Insulin Human Regular 10 UNITS ONCE ONE 08/04 2330 DC 08/04 IVP 08/04 2331 2340 Insulin Human Regular 100 UNITS .Q25H 08/04 2330 AC 08/04 Sodium Chloride 100 ML IV 2340 Sodium Bicarbonate 0 .STK-MED ONE 08/04 2304 DC .ROUTE Sodium Bicarbonate 50 ML ONCE ONE 08/04 2300 DC 08/04 IV 08/04 2301 2312 Sodium Chloride 10 ML PRN PRN 08/04 223 AC IV 09/10 2222 Sodium Chloride 2,000 ML .STK-MED ONE 08/04 2230 DC IV Orders Procedure Date/time Status DIFFERENTIAL-WBC 08/04 224 Complete URINARY CATHETER INSERT 08/04 2224 Active URINALYSIS/COMPLETE 08/04 2224 Complete DRUG ABUSE SCREEN (TRIAGE) 08/04 2224 Complete ELECTROCARDIOGRAM REQUEST 08/04 2223 Active VENOUS BLOOD GAS 08/04 2223 Active CHEST-PORTABLE 08/04 2223 Active IV SALINE LOCK 08/04 2223 Active CULTURE, BLOOD 08/04 2223 Active LACTIC ACID 08/04 2223 Complete COMPLETE METABOLIC PANEL 08/04 2223 Complete CBC WITH AUTO DIFF 08/04 2223 Complete Acetone, Serum 08/04 2223 Complete 12 LEAD EKG-MARLENE (INITIAL) 08/04 UNK Active CM/EKG 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 ST/Twave chgs XRAY/CT/US XRAY/CT/US XRAY chest XR interpretation by reviewed by me Xray Results normal/NAD Departure Departure Time of Disposition 2348 Disposition DC/XFER from ER to [facility] Clinical Impression Primary Impression: DKA (diabetic ketoacidoses) Qualifiers: Diabetes mellitus type: type 1 Diabetes mellitus complication detail: without coma Qualified Code: E10.10 - Type 1 diabetes mellitus with ketoacidosis without coma Condition STABLE Additional Instructions discussed with dr moore ED Critical Care Critical Care Yes Time spent 105-134 min Vital system(s) involved: Metabolic Failure I was present at bedside for Coordinating pt's care, Interpreting EKGs/Strips , Reviewing lab results, Reviewing old records, Discussing pt condition, For re- examinations, Examining radiographs If Critical Care minutes are documented, the time involved in the performance of seperately reportable procedures was not counted toward critical care time documented. I directly delivered medical care to this critically ill and/or injured patient. Timely evaluation and treatment was necessary to address the significant organ system(s) dysfunction present in this patient. at 2350
[2017-08-04 22:50] LABS: VENOUS ABE -33.9 MMOL/L (-2.4-2.3); VENOUS TCO2 1.4 MMOL/L (23-27)
[2017-08-04 23:12] LABS: LYMPH # 2.2 K/mm3 (0.7-4.5)
[2017-08-04 23:14] LABS: HEMOGLOBIN 12.1 g/dL (12.2-16.2)
[2017-08-04 23:18] LABS: URINE BLOOD 1+ (NEG)
[2017-08-04 23:20] LABS: BUN 23 mg/dL (7-18)
[2017-08-04 23:21] LABS: AMPHETAMINES/METAMPHETAMINES NEGATIVE ng/mL (<1000); URINE BILIRUBIN - DIPSTICK NEGATIVE (NEG)
[2017-08-04 23:23] LABS: GFR (ESTIMATED) 34 ML/MIN (59-)
[2017-08-04 23:36] LABS: NEUTROPHILS 68 % (42-76)
[2017-08-04 23:59] VITALS: BP 101/52
[2017-08-05 00:28] LABS: ALLEN'S TEST Y; ARTERIAL ABE -32.2 MMOL/L (-2.4-+2.3); ARTERIAL PO2 147.8 MMHG (80-100); ARTERIAL TCO2 1.7 MMOL/L (23-27); OXYGEN 4
--- NOTE | 2017-08-05 08:14 | RADIOLOGY REPORT PS360 ---
CHEST-PORTABLE HISTORY: Shortness of breath sob ORDERING PHYSICIAN: Saeed John MD PATIENT AGE: 27 years COMPARISON: 05/10/2017 FINDINGS: The cardiomediastinal silhouette and pulmonary vascularity are within normal limits. The lungs are clear without infiltrates, suspicious nodules, or pleural effusions. No acute bony abnormalities. Right IJ Mediport catheter remains in place with the tip in the region superior vena cava IMPRESSION: No change with no acute finding
== END 2017-08-05 00:30 | disposition short-term general hospital (02) ==
LOC: ER 22:01
PROVIDERS: Emergency Medicine
DX: E10.10 Type 1 diabetes mellitus with ketoacidosis without coma (principal); Z79.4 Long term (current) use of insulin; H54.41 Blindness, right eye, normal vision left eye; I10 Essential (primary) hypertension; E07.9 Disorder of thyroid, unspecified; Z86.73 Personal history of transient ischemic attack (TIA), and cerebral infarction without residual deficits; R56.9 Unspecified convulsions; Z79.899 Other long term (current) drug therapy